=== PATIENT | male | born 1985 | race Caucasian/White ===

== ENCOUNTER → 2019-10-16 | Outpatient (CLI) | payer OTHER ==
--- NOTE | 2019-10-20 14:34 | SLEEP ---
[address] [address] SLEEP STUDY REPORT Name: JARRELL LUEVANO Room: [facility]#: [id number] Admission: 10/16/19 Attend Phys: Lee Swanson Discharge: Date of : 81 Report #: [id number] THIS REPORT FOR: //name// CC: Afshan Rivera DO This study has been reviewed in its entirety by a board certified sleep specialist DATE OF SERVICE: 10/16/2019 SLEEP STUDY ATTENDING PHYSICIAN: Afshan Rivera DO. The patient is a 34-year-old who weighs 185 pounds with a BMI of 24.4. The patient underwent home sleep study performed at [facility]. Total recording time was 457 minutes. During the night study, the patient had 127 obstructive apneas, 1 mixed apnea, 4 central apneas and 55 hypopneas. The patient's apnea-hypopnea index was 25 per hour with a supine AHI of 29 per hour. Nocturnal oximetry study revealed an average oxygen saturation of 94% with the lowest of 79%. Twenty-one minutes were spent in oxygen saturation less than 90%. Mean heart rate was 65 beats per minute with a maximum of 104 beats per minute. IMPRESSION: 1. Moderate sleep apnea-hypopnea syndrome with worsening during supine sleep. Total AHI 25 per hour with a supine AHI of 29 per hour. 2. Nocturnal hypoxia secondary to obstructive sleep apnea. RECOMMENDATIONS: 1. The patient would benefit from treatment of sleep apnea with CPAP. This can be done as an in-lab CPAP titration study versus home auto-titration study. 2. Once the patient is optimally treated, then follow up in 4-6 weeks to assess compliance with treatment and to document clinical improvement. 3. Avoid [employer] depressants. 4. Cautioned regarding driving until symptoms of sleep apnea resolve with the use of CPAP. <ELECTRONICALLY SIGNED> By: Adan Ba MD 10/20/19 1434 [id number] [id number] Ba MD /nt
== END ==
LOC: M.SLEEPLAB 12:00
DX: G47.33 Obstructive sleep apnea (adult) (pediatric) (principal); G47.30 Sleep apnea, unspecified; R09.02 Hypoxemia

== ENCOUNTER → 2020-02-11 | Outpatient (CLI) | payer OTHER ==
--- NOTE | 2020-02-15 07:23 | SLEEP ---
[address] [address] SLEEP STUDY REPORT Name: JARRELL LUEVANO Room: [facility]#: [id number] Admission: 02/11/20 Attend Phys: Lee Swanson Discharge: Date of : 81 Report #: [id number] THIS REPORT FOR: //name// CC: Afshan Rivera DO This study has been reviewed in its entirety by a board certified sleep specialist DATE OF SERVICE: 02/11/2020 SLEEP STUDY ATTENDING PHYSICIAN: Afshan Rivera DO The patient is a 34-year-old who weighs 170 pounds with a BMI of 21.8. The patient was diagnosed with sleep apnea by home sleep study. Details of which were not available. The patient was referred for CPAP titration study. This was performed at [facility]. During the night study, the patient spent 414 minutes in bed and slept for 264 minutes with a sleep efficiency of 64%. Sleep latency was 38.2 minutes with a REM latency of 241.5 minutes. Sleep architecture showed a normal stage 1 sleep, increased stage 2 sleep, normal slow wave and reduced REM sleep. EKG monitoring revealed an average heart rate of 58 beats per minute. No sustained arrhythmias observed. PLMs were seen at an index of 3 per hour and 1 per hour caused EEG arousals. The patient was started on CPAP at a pressure of 5 cm water and titrated up to 13 cm water. However, best results were seen at CPAP pressure of 12 cm of water. The patient slept for 112 minutes. The patient's AHI was reduced to 2.1 per hour and oxygen saturation remained above 92%. IMPRESSION: 1. Sleep apnea diagnosed by previous sleep study. 2. No clinically significant periodic limb movements. RECOMMENDATIONS: 1. CPAP at 12 cm water completely eliminated the patient's sleep apnea and should be used on a nightly basis. 2. Follow up in 4-6 weeks to assess compliance with CPAP and to document clinical improvement. 3. Avoid [employer] [place] [place] [id number] SLEEP STUDY REPORT Name: JARRELL LUEVANO Room: [facility]#: [id number] Admission: 02/11/20 Attend Phys: Lee Swanson Discharge: Date of : 81 Report #: [id number] 4. Cautioned regarding driving until symptoms of sleep apnea resolve with the use of CPAP. <ELECTRONICALLY SIGNED> By: Adan Ba MD 02/15/20 0723 [id number] Ba MD /nt
== END ==
LOC: M.SLEEPLAB 19:59
PROVIDERS: ATTEND Family Medicine
DX: G47.33 Obstructive sleep apnea (adult) (pediatric) (principal)